=== PATIENT | female | born 1970 | race Caucasian/White ===

== ENCOUNTER 2022-04-22 08:58 | Outpatient (CLI) | payer OTHER, SELFPAY ==
[2022-04-22 13:08] LABS: Albumin* 4.3 g/dL (3.3-5.0); Chloride* 104 mmol/L (96-114); Sodium* 136 mmol/L (135-149)
[2022-04-22 13:09] LABS: Potassium* 4.5 mmol/L (3.6-5.1)
[2022-04-22 13:11] LABS: Alkaline Phosphatase* 106 U/L (40-150); Aspartate Amino Transferase* 30 U/L (12-35); Bilirubin Total* 0.4 mg/dL (0.1-1.5); Blood Urea Nitrogen* 12 mg/dL (7-30); Carbon Dioxide* 27 mmol/L (20-32); Cholesterol* 215 mg/dL (90-199); Creatinine* 0.8 mg/dL (0.5-1.5); Estimated Glomerular Filt Rate 89 ml/min; Total Protein* 7.7 g/dL (6.0-8.3)
[2022-04-22 13:12] LABS: Alanine Aminotransferase* 21 U/L (4-35); Calcium* 10.7 mg/dL (8.4-10.6); Glucose* 98 mg/dL (60-115); HDL Cholesterol* 78 mg/dL (>=50); LDL Cholesterol Calculated 120 mg/dL (<100); Triglycerides* 86 mg/dL (40-149)
== END 2022-04-22 08:59 | disposition home or self-care (01) ==
PROVIDERS: PCP Physician Assistant Medical; Visit Provider Physician Assistant Medical
DX: Z00.00 Encounter for general adult medical examination without abnormal findings (principal); F32.A Depression, unspecified; Z13.6 Encounter for screening for cardiovascular disorders; Z13.29 Encounter for screening for other suspected endocrine disorder
CPT/HCPCS: 80053; 80061; 84443

== ENCOUNTER 2023-05-31 10:35 | Outpatient (CLI) | payer OTHER, SELFPAY | END 2023-05-31 10:36 | disposition home or self-care (01) | PROVIDERS: PCP Physician Assistant Medical; Visit Provider Physician Assistant Medical | DX: Z00.00 Encounter for general adult medical examination without abnormal findings (principal); R41.3 Other amnesia; F32.A Depression, unspecified; E83.52 Hypercalcemia; R79.89 Other specified abnormal findings of blood chemistry; Z13.29 Encounter for screening for other suspected endocrine disorder; Z13.21 Encounter for screening for nutritional disorder; Z13.6 Encounter for screening for cardiovascular disorders; Z11.59 Encounter for screening for other viral diseases; Z13.0 Encounter for screening for diseases of the blood and blood-forming organs and certain disorders involving the immune mechanism; Z13.1 Encounter for screening for diabetes mellitus | CPT/HCPCS: 80053; 82306; 82310; 82607; 83970; 84443; 86703; 86803 ==